=== PATIENT | female | born 1935 | race Caucasian/White ===

== ENCOUNTER 2016-07-13 08:52 | Inpatient (IN) | payer MEDICARE, OTHER ==
[~2016-07-13] VITALS: Ht 162.6 cm; Wt 48.8 kg
[~2016-07-13 08:52] MED LIST: AFED30TA PO; ALBU0.086 INH; ALBU6.7H INH; CHOL4 PO; COUM5TAB PO; DONE10TA14 PO; GEMF600T PO; HYOS0.1251 SL; LASI20TA PO; METO50TA PO; OMEP20TA PO; ZOLP10TA3 PO
[2016-07-13 08:57] VITALS: BP 150/86; PULSE 79; RESP 21; TEMP 97.4; O2SAT 94
[2016-07-13] MEDS ORDERED: SODIUM CHLORIDE 0.9% FLUSH 5 ML FLUSH IVF PRN (09:00)
[2016-07-13] MEDS ORDERED: HYDROmorphone HCL PF 1 MG/ML VIAL IVS ONE (09:00)
[2016-07-13] MEDS ORDERED: ONDANSETRON HCL 4 MG/2 ML VIAL IVP ONE (09:00)
[2016-07-13 09:04] VITALS: O2SAT 94
--- NOTE | 2016-07-13 09:05 | PD ---
HPI Chief Complaint: fall, hip pain Time Seen by Provider: 08:56 Travel History International Travel<30 days: No Contact w/Intl Traveler<30days: No Traveled to known affect area: No History of Present Illness HPI 81-year-old female with history of COPD on home O2, multiple medical issues, presents to the ER today brought in by EMS because she tripped on her oxygen cord and fell, has pain in her left hip, was unable to get up for 2 hours, but was able to crawl to the phone. She denies any head injury, loss of consciousness, or any other injuries. She also complains of lower back pain. She denies any weakness, fevers, vomiting, or any other symptoms. He is currently a 10 out 10, worsens with movement. Modifying Factors: None Associated Signs & Symptoms: Trip and fall, left hip pain Risk Factors: Elderly PFSH Past Medical History COPD: Yes Dementia: Yes Diminished Hearing: No Hypertension: Yes Musculoskeletal: Yes Psychiatric: Yes Respiratory: Yes (PULMONARY EMBOLUS) : 5 Para: 5 Past Surgical History Hysterectomy: Yes Social History Alcohol Use: Yes (HARD LIQUOR AND WATER THREE TIMES A WEEK) Tobacco Use: Yes (3-4 CIGARETTS DAILY) Substance Use: No Allergies-Medications (Allergen,Severity, Reaction): Coded Allergies: No Known Allergies (Unverified , 07/13/16) YES, VERIFIED WITH PATIENT (UNABLE TO CHANGE "VERIFIED" ANSW TO YES) Reported Meds & Prescriptions Reported Meds & Active Scripts Active Reported Ambien 10 Mg Tab (Zolpidem Tartrate) 10 Mg Tab 10 Mg PO HSPRN Questran 4 Gm Pkt (Cholestyramine Resin) 4 Gm Soln 4 Gm PO BID 2 scoops BID Proventil Ud 0.083% (2.5 Mg/3 Ml) (Albuterol Sulfate) 2.5 Mg/3 Ml Inha 2.5 Mg INH Q6-8HPRN Proventil Hfa (Albuterol Sulfate) 6.7 Gm Aero 2 Puff INH Q6-8HPRN * SHAKE WELL BEFORE USE * Gemfibrozil 600 Mg Tab 600 Mg PO BID Hyoscyamine Sulfate 0.125 Mg/Ml Iglesia 0.125 Mg SL TIDPRN Donepezil Hcl (Donepezil Hydrochloride) 10 Mg Tab 10 Mg PO DAILY Afeditab Cr (Nifedipine) 30 Mg Tab 30 Mg PO DAILY Coumadin (Warfarin Sodium) 5 Mg Tab 6 Mg PO DAILY Lasix (Furosemide) 20 Mg Tab 20 Mg PO DAILY TAKE 1-2 TABLETS NEEDED. Omeprazole 20 Mg Tab 20 Mg PO DAILY Metoprolol Tartrate 50 Mg Tab 25 Mg PO DAILY Review of Systems Except as stated in HPI: all other systems reviewed are Neg Physical Exam Narrative GENERAL: Elderly white female patient who is well developed, awake, alert, oriented 3, in moderate distress. SKIN: Warm and dry. HEAD: Atraumatic. Normocephalic. EYES: Pupils equal and round. No scleral icterus. No injection or drainage. ENT: No nasal bleeding or discharge. Mucous membranes pink and moist. NECK: Trachea midline. No JVD. CARDIOVASCULAR: Regular rate and rhythm. No murmur appreciated. RESPIRATORY: Mild accessory muscle use. Decreased bilaterally to auscultation. Breath sounds equal bilaterally. GASTROINTESTINAL: Abdomen soft, non-tender, nondistended. Hepatic and splenic margins not palpable. Pelvis: Stable, tender palpation at the left hip with noticed shortening of the left leg. Decreased range of motion secondary to pain. BACK: No CVA tenderness. No rash. No point tenderness on palpation of the spine. Generalized tenderness in the lower back midline. MUSCULOSKELETAL: No obvious deformities. No clubbing. No cyanosis. No edema. NEUROLOGICAL: Awake and alert. No obvious cranial nerve deficits. Motor grossly within normal limits. Normal speech. PSYCHIATRIC: Appropriate mood and affect; insight and judgment normal. Data Data Last Documented VS Vital Signs Date Time Temp Pulse Resp B/P Pulse Ox O2 Delivery O2 Flow Rate FiO2 07/13/16 09:04 94 Nasal Cannula 3 07/13/16 08:57 97.4 79 21 150/86 Orders Electrocardiogram (07/13/16 08:56) Complete Blood Count With Diff (07/13/16 08:56) Comprehensive Metabolic Panel (07/13/16 08:56) Prothrombin Time / Inr (Pt) (07/13/16 08:56) Act Partial Throm Time (Ptt) (07/13/16 08:56) Urinalysis - C+S If Indicated (07/13/16 08:56) Chest, Single Ap (07/13/16 08:56) Hip, Uni(Ap&Lat) W Ap Pelvis (07/13/16 08:56) Iv Access Insert/Monitor (07/13/16 08:56) Urinary Catheter Insert/Apply (07/13/16 08:56) Oximetry (07/13/16 08:56) Ecg Monitoring (07/13/16 08:56) Ondansetron Inj (Zofran Inj) (07/13/16 09:00) Sodium Chloride 0.9% Flush (Ns Flush) (07/13/16 09:00) Hydromorphone Pf Inj (Dilaudid Pf Inj) (07/13/16 09:00) Diet Npo (07/13/16 Breakfast) Creatine Kinase (Cpk) (07/13/16 09:05) Spine, Lumbar - Ltd (Ap & Lat) (07/13/16 09:05) Admit Order (Ed Use Only) (07/13/16 10:53) Admit To Inpatient (07/13/16 ) Vital Signs (Adult) Q4H (07/13/16 10:53) Activity Bed Rest (07/13/16 10:53) Intake + Output MARTHA.QSHIFT (07/13/16 10:53) Diet Npo (07/13/16 Lunch) Sodium Chlor 0.9% 1000 Ml Inj (Ns 1000 M (07/13/16 12:00) Sodium Chloride 0.9% Flush (Ns Flush) (07/13/16 11:00) Sodium Chloride 0.9% Flush (Ns Flush) (07/13/16 21:00) Ondansetron Inj (Zofran Inj) (07/13/16 11:00) Magnesium Hydroxide Liq (Milk Of Magnesi (07/13/16 11:00) Sennosides (Senokot) (07/13/16 11:00) Complete Blood Count With Diff (07/14/16 06:00) Scd Bilateral/Knee High MARTHA.BID (07/13/16 10:53) Eugene Bilateral/Knee High MARTHA.QSHIFT (07/13/16 10:53) Naloxone Inj (Narcan Inj) (07/13/16 11:00) Inpatient Certification (07/13/16 ) Labs Laboratory Tests Test 07/13/16 09:40 White Blood Count 14.5 TH/MM3 Red Blood Count 3.88 MIL/MM3 Hemoglobin 12.1 GM/DL Hematocrit 37.9 % Mean Corpuscular Volume 97.8 FL Mean Corpuscular Hemoglobin 31.2 PG Mean Corpuscular Hemoglobin 31.9 % Concent Red Cell Distribution Width 12.7 % Platelet Count 215 TH/MM3 Mean Platelet Volume 8.1 FL Neutrophils (%) (Auto) 85.1 % Lymphocytes (%) (Auto) 3.7 % Monocytes (%) (Auto) 10.7 % Eosinophils (%) (Auto) 0.2 % Basophils (%) (Auto) 0.3 % Neutrophils # (Auto) 12.3 TH/MM3 Lymphocytes # (Auto) 0.5 TH/MM3 Monocytes # (Auto) 1.6 TH/MM3 Eosinophils # (Auto) 0.0 TH/MM3 Basophils # (Auto) 0.0 TH/MM3 CBC Comment DIFF FINAL Differential Comment Prothrombin Time 11.1 SEC Prothromb Time International 1.0 RATIO Ratio Activated Partial 23.0 SEC Thromboplast Time Urine Color YELLOW Urine Turbidity CLEAR Urine pH 6.5 Urine Specific [place] 1.020 Urine Protein NEG mg/dL Urine Glucose (UA) NEG mg/dL Urine Ketones TRACE mg/dL Urine Occult Blood NEG Urine Nitrite NEG Urine Bilirubin NEG Urine Urobilinogen LESS THAN 2.0 MG/DL Urine Leukocyte Esterase NEG Urine RBC 2 /hpf Urine WBC 1 /hpf Urine Mucus FEW /lpf Microscopic Urinalysis Comment CATH-CULT NOT IND Sodium Level 143 MEQ/L Potassium Level 3.8 MEQ/L Chloride Level 101 MEQ/L Carbon Dioxide Level 33.5 MEQ/L Anion Gap 9 MEQ/L Blood Urea Nitrogen 15 MG/DL Creatinine 0.56 MG/DL Estimat Glomerular Filtration 104 ML/MIN Rate Random Glucose 117 MG/DL Calcium Level 8.9 MG/DL Total Bilirubin 0.4 MG/DL Aspartate Amino Transf 22 U/L (AST/SGOT) Alanine Aminotransferase 19 U/L (ALT/SGPT) Alkaline Phosphatase 54 U/L Total Creatine Kinase 100 U/L Total Protein 6.3 GM/DL Albumin 3.7 GM/DL MDM Medical Decision Making Medical Screen Exam Complete: Yes Emergency Medical Condition: Yes Medical Record Reviewed: Yes Interpretation(s) Laboratory Tests Test 07/13/16 09:40 White Blood Count 14.5 TH/MM3 (4.0-11.0) Red Blood Count 3.88 MIL/MM3 (4.00-5.30) Mean Corpuscular Hemoglobin 31.9 % Concent (32.0-36.0) Neutrophils (%) (Auto) 85.1 % (16.0-70.0) Lymphocytes (%) (Auto) 3.7 % (9.0-44.0) Monocytes (%) (Auto) 10.7 % (0.0-8.0) Neutrophils # (Auto) 12.3 TH/MM3 (1.8-7.7) Lymphocytes # (Auto) 0.5 TH/MM3 (1.0-4.8) Monocytes # (Auto) 1.6 TH/MM3 (0-0.9) Activated Partial 23.0 SEC Thromboplast Time (24.3-30.1) Urine Ketones TRACE mg/dL (NEG) Urine Mucus FEW /lpf (OCC) Carbon Dioxide Level 33.5 MEQ/L (21.0-32.0) Random Glucose 117 MG/DL (74-106) Total Protein 6.3 GM/DL (6.4-8.2) Last 24 hours Impressions Lumbar Spine X-Ray 07/13/1605 Signed Impressions: Service Date/Time: June 09:25 - CONCLUSION: 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 Anthony Salvador MD Hip and Pelvis X-Ray 07/13/16 0856 Signed Impressions: Service Date/Time: June 09:28 - CONCLUSION: Mildly angulated intertrochanteric fracture left hip. Anthony Salvador MD Chest X-Ray 07/13/16 0856 Signed Impressions: Service Date/Time: June 09:21 - CONCLUSION: COPD No evidence of significant airspace disease or acute congestion. Intact osseous structures without evidence of displaced rib fracture. Anthony Salvador MD Differential Diagnosis Trip and fall, back pain, left hip paincontusions versus fractures versus dislocations Narrative Course X-ray shows a left intratrochanteric hip fracture. No other acute fractures were identified. At this point, my plan would be to consult orthopedics on the patient and medically admit the patient for further treatment. Case is discussed with Dr. Fitzgerald for admission. Case was discussed with Dr. Thornton's PA who would like the patient to be nothing by mouth after midnight for ORIF. Diagnosis Primary Impression: Closed left hip fracture Admitting Information Admitting Physician Requests: Admit Shirley Brown MD Jul 13, 2016 09:05
--- NOTE | 2016-07-13 09:39 | RADRPT ---
EXAM DATE/TIME: 07/13/2016 09:21 [facility] COMPARISON: CHEST SINGLE AP, July 27, 2012, 16:04. INDICATIONS : Evaluate chest for trauma, fell MEDICAL HISTORY : None. SURGICAL HISTORY : None. ENCOUNTER: Initial ACUITY: 1 day PAIN SCORE: 0/10 LOCATION: chest FINDINGS: The lungs are hyperaerated. There is no evidence of acute airspace disease, congestion or pleural eff usions. Heart remains within normal limits in size. There are no acute bony abnormalities. CONCLUSION: COPD No evidence of significant airspace disease or acute congestion. Intact osseous structures without evidence of displaced rib fracture. Anthony Salvador MD on July 13, 2016 at 9:33 Board Certified Radiologist. This report was verified electronically.
--- NOTE | 2016-07-13 09:40 | RADRPT ---
EXAM DATE/TIME: 07/13/2016 09:28 [facility] COMPARISON: No previous studies available for comparison. INDICATIONS : Left hip pain, fell MEDICAL HISTORY : None. SURGICAL HISTORY : None. ENCOUNTER: Initial ACUITY: 1 day PAIN SCORE: 10/10 LOCATION: Left Hip FINDINGS: Examination of the left hip was performed with AP Pelvis. A mildly angulated intertrochanteric fractu re is identified the left hip. Femoral head remains well-seated within the acetabulum. Proximal left femoral shaft is otherwise intact. Bony pelvis is intact Mild bilateral hip arthropathy is noted. CONCLUSION: Mildly angulated intertrochanteric fracture left hip. Anthony Salvador MD on July 13, 2016 at 9:37 Board Certified Radiologist. This report was verified electronically.
--- NOTE | 2016-07-13 09:41 | RADRPT ---
EXAM DATE/TIME: 07/13/2016 09:25 [facility] COMPARISON: No previous studies available for comparison. INDICATIONS : Back pain, fell MEDICAL HISTORY : None. SURGICAL HISTORY : None. ENCOUNTER: Initial ACUITY: 1 day PAIN SCORE: 2/10 LOCATION: Lumbar spine FINDINGS: AP and lateral views of the lumbar spine demonstrates advanced degenerative disc disease with asymmet nirmal disc space narrowing. A levoscoliotic deformity is identified. Acute body height is well-maintained. There is no evidence of acute compression deformity. There are no destructive bone lesions. CONCLUSION: 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 Anthony Slavador MD on July 13, 2016 at 9:39 Board Certified Radiologist. This report was verified electronically.
[2016-07-13 10:12] LABS: BLOOD, URINE NEG (NEG); GLUCOSE,URINE NEG (NEG); KETONE, URINE TRACE mg/dL (NEG); MUCUS URINE FEW /lpf (OCC); NITRITE,URINE NEG (NEG); PH, URINE 6.5 (5.0-8.5); URINE COLOR YELLOW (YELLW/STRAW)
[2016-07-13 10:13] LABS: COMMENT (UR) CATH-CULT NOT IND; CULTURE IF INDICATED CATH CULTURE NOT IND
[2016-07-13 10:15] LABS: AUTOMATED NEUTROPHIL # 12.3 TH/MM3 (1.8-7.7); BASOPHIL % 0.3 % (0.0-2.0); EOSINOPHIL % 0.2 % (0.0-4.0); HEMATOCRIT 37.9 % (35.0-46.0); HEMO FLAGS DIFF FINAL; LYMPH % 3.7 % (9.0-44.0); LYMPHOCYTE # 0.5 TH/MM3 (1.0-4.8); MEAN CELL VOLUME 97.8 FL (80.0-100.0); MEAN CORPUSCULAR HEMOGLOBIN 31.2 PG (27.0-34.0); MEAN CORPUSCULAR HGB CONC 31.9 % (32.0-36.0); MONO % 10.7 % (0.0-8.0); NEUT % 85.1 % (16.0-70.0); PLATELET COUNT 215 TH/MM3 (150-450); RED BLOOD COUNT 3.88 MIL/MM3 (4.00-5.30); RED CELL DISTRIBUTION WIDTH 12.7 % (11.6-17.2); WHITE BLOOD COUNT 14.5 TH/MM3 (4.0-11.0)
[2016-07-13 10:21] LABS: PROTHROMBIN TIME - PATIENT 11.1 SEC (9.8-11.6)
[2016-07-13 10:23] LABS: ALT (GPT) 19 U/L (10-53); ANION GAP 9 MEQ/L (5-15); AST (GOT) 22 U/L (15-37); BICARBONATE 33.5 MEQ/L (21.0-32.0); BLOOD UREA NITROGEN 15 MG/DL (7-18); CHLORIDE 101 MEQ/L (98-107); GLOMERULAR FILTRATION RATE 104 ML/MIN (>89); POTASSIUM 3.8 MEQ/L (3.5-5.1); SODIUM (NA) 143 MEQ/L (136-145)
[2016-07-13 10:26] LABS: ALKALINE PHOSPHATASE 54 U/L (45-117); TOTAL BILIRUBIN ADULT 0.4 MG/DL (0.2-1.0)
[2016-07-13] MEDS ORDERED: SENNOSIDES 8.6 MG TAB PO PRN (11:00)
[2016-07-13] MEDS ORDERED: MAGNESIUM HYDROXIDE SUSP 30 ML CUP PO PRN (11:00)
[2016-07-13] MEDS ORDERED: NALOXONE HCL 0.4 MG/ML AMP IV PRN (11:00)
[2016-07-13] MEDS ORDERED: ONDANSETRON HCL 4 MG/2 ML VIAL IVP PRN (11:00)
[2016-07-13] MEDS ORDERED: SODIUM CHLORIDE 0.9% FLUSH 5 ML FLUSH FLUSH PRN (11:00)
[2016-07-13 12:00] VITALS: BP 131/61; PULSE 78; RESP 17; O2SAT 100
[2016-07-13 13:00] VITALS: BP 130/57; PULSE 77; RESP 17; O2SAT 96
--- NOTE | 2016-07-13 13:44 | EKG ---
Date Performed: 07/13/2016 Time Performed: 09:56:09 PTAGE: 81 years EKG: Sinus rhythm WITH FIRST DEGREE AV BLOCK WITH OCCASIONAL SUPRAVENTRICULAR PREMATURE COMPLEXES POSSIBLE LEFT ATRIAL ENLARGEMENT ABNORMAL ECG PREVIOUS TRACING : 07/24/2012 18.31 DOCTOR: Brandan Kate Interpretating Date/Time 07/13/2016 13:42:44
[2016-07-13] MEDS ORDERED: DOCUSATE SODIUM 50 MG/SENNA 8.6 MG TAB PO PRN (13:45)
[2016-07-13] MEDS ORDERED: ACETAMINOPHEN/HYDROcodone 325 MG/10 MG TAB PO PRN (13:45)
[2016-07-13] MEDS ORDERED: ACETAMINOPHEN/HYDROcodone 325 MG/7.5 MG TAB PO PRN (13:45)
[2016-07-13] MEDS: HYDROmorphone HCL PF 1 MG/ML VIAL IV PUSH PRN ×2 (13:48→17:44)
[2016-07-13 16:00] VITALS: BP 140/69; PULSE 82; RESP 18; TEMP 96.1; O2SAT 94
--- NOTE | 2016-07-13 17:16 | HHI.HP ---
[facility] Ad[facility] Diagnosis trip and fall/left hip fracture Diagnoses: Chief Complaint: left hip pain Travel History International Travel<30 Days: No Contact w/Intl Traveler <30 Da: No Traveled to Known Affected Are: No History of Present Illness 81 yr old female w PMHX of PE, COPD oxygen dependent, hyperlipidemia, dementia, presented to the ED for left hip pain. She fell around 5this morning after tripping on her oxygen cord. She called her best friend who came to see her as soon as he could around 7am. Pt is a poor historian but family friend at bedside gives me the history. Pt denies any LOC or hitting her head. Currently her pain is a 10/10 and radiates to her back. Stabbing in nature and located in her left hip. She tells me that she has been using oxygen at home for a very long time. She rarely uses her inhalers but cannot tell me which ones she is on. When asked about her hx of PE and if she had any other blood disorders she admits having a PE but denies any blood d/o and tells me that she hasn't been on blood thinners in a while but then tells me that she has been taking her meds and cannot remember if she indeed is on blood thinners. Apparently her was on hospice and they took all of their meds including hers. However she had some in her dispenser and she has been taking them but cannot recall which meds she is supposed to be on. Pt's friend couldn't find the bottles himself therefore cannot tell me what she takes. She does go to [facility] in [facility] on . Her a few days ago. Pt wishes to be a DNR. She tells me that she SOB is stable, hasn't had a flare in a while. Hasn't required using an inhaler recently. She denies any cardiac hx and friend doesn' t know of any. Review of Systems 10 pt review of systems negative except those mentioned in the HPI Past Family Social History Past Medical History dementia, COPD, hyperlipidemia, ? renal failure and hepatitis per EMR, hx PE. Past Surgical History hysterectomy Reported Medications Reported Meds & Active Scripts Active Reported Lisinopril 10 Mg Tab 10 Mg PO DAILY Nifedical XL (Nifedipine) 60 Mg Tab 30 Mg PO DAILY Allergies: Coded Allergies: No Known Allergies (Unverified , 07/13/16) YES, VERIFIED WITH PATIENT (UNABLE TO CHANGE "VERIFIED" ANSW TO YES) Family History mother from [place] father had a stroke Social History has been smoking since age 21 but has decrease her number of cigs to 5 cigs a day and since has managed her COPD just w oxygen. She doesn't follow w business objects architect and was prescribed her oxygen by her PCP Dr. Rm. denies any illegal drugs rarely drinks Physical Exam Vital Signs Vital Signs Date Time Temp Pulse Resp B/P Pulse Ox O2 Delivery O2 Flow Rate FiO2 07/13/16 16:00 96.1 82 18 140/69 94 07/13/16 13:00 77 17 130/57 96 Nasal Cannula 3 07/13/16 12:00 78 17 131/61 100 Nasal Cannula 3 07/13/16 09:04 94 Nasal Cannula 3 07/13/16 09:04 94 3 07/13/16 08:57 97.4 79 21 150/86 94 Physical Exam GENERAL: This is a well-nourished, well-developed patient, in no apparent distress. SKIN: No rashes, ecchymoses or lesions. Cool and dry. HEAD: Atraumatic. Normocephalic. No temporal or scalp tenderness. EYES: Pupils equal round and reactive. Extraocular motions intact. No scleral icterus. No injection or drainage. ENT: Nose without bleeding, purulent drainage or septal hematoma. Throat without erythema, tonsillar hypertrophy or exudate. Uvula midline. Airway patent. NECK: Trachea midline. No JVD or lymphadenopathy. Supple, nontender, no meningeal signs. CARDIOVASCULAR: Regular rate and rhythm without murmurs, gallops, or rubs. RESPIRATORY: Clear to auscultation. Breath sounds equal bilaterally. No wheezes , rales, or rhonchi. GASTROINTESTINAL: Abdomen soft, non-tender, nondistended. No hepato-splenomegaly , or palpable masses. No guarding. MUSCULOSKELETAL: Extremities without clubbing, cyanosis, or edema. No joint tenderness, effusion, or edema noted. No calf tenderness. Negative Homans sign bilaterally. NEUROLOGICAL: Awake and alert. Cranial nerves II through XII intact. Motor and sensory grossly within normal limits. Five out of 5 muscle strength in all muscle groups. Normal speech. Laboratory Laboratory Tests Test 07/13/16 09:40 White Blood Count 14.5 Red Blood Count 3.88 Hemoglobin 12.1 Hematocrit 37.9 Mean Corpuscular Volume 97.8 Mean Corpuscular Hemoglobin 31.2 Mean Corpuscular Hemoglobin 31.9 Concent Red Cell Distribution Width 12.7 Platelet Count 215 Mean Platelet Volume 8.1 Neutrophils (%) (Auto) 85.1 Lymphocytes (%) (Auto) 3.7 Monocytes (%) (Auto) 10.7 Eosinophils (%) (Auto) 0.2 Basophils (%) (Auto) 0.3 Neutrophils # (Auto) 12.3 Lymphocytes # (Auto) 0.5 Monocytes # (Auto) 1.6 Eosinophils # (Auto) 0.0 Basophils # (Auto) 0.0 CBC Comment DIFF FINAL Differential Comment Prothrombin Time 11.1 Prothromb Time International 1.0 Ratio Activated Partial 23.0 Thromboplast Time Urine Color YELLOW Urine Turbidity CLEAR Urine pH 6.5 Urine Specific [place] 1.020 Urine Protein NEG Urine Glucose (UA) NEG Urine Ketones TRACE Urine Occult Blood NEG Urine Nitrite NEG Urine Bilirubin NEG Urine Urobilinogen LESS THAN 2.0 Urine Leukocyte Esterase NEG Urine RBC 2 Urine WBC 1 Urine Mucus FEW Microscopic Urinalysis Comment CATH-CULT NOT IND Sodium Level 143 Potassium Level 3.8 Chloride Level 101 Carbon Dioxide Level 33.5 Anion Gap 9 Blood Urea Nitrogen 15 Creatinine 0.56 Estimat Glomerular Filtration 104 Rate Random Glucose 117 Calcium Level 8.9 Total Bilirubin 0.4 Aspartate Amino Transf 22 (AST/SGOT) Alanine Aminotransferase 19 (ALT/SGPT) Alkaline Phosphatase 54 Total Creatine Kinase 100 Total Protein 6.3 Albumin 3.7 Result Diagram: 07/13/1693907/13/16939 Imaging Last Impressions Lumbar Spine X-Ray 07/13/16904 Signed Impressions: Service Date/Time: June 09:25 - CONCLUSION: 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 Anthony Salvador MD Hip and Pelvis X-Ray 07/13/16 0856 Signed Impressions: Service Date/Time: June 09:28 - CONCLUSION: Mildly angulated intertrochanteric fracture left hip. Anthony Salvador MD Chest X-Ray 07/13/16 0856 Signed Impressions: Service Date/Time: June 09:21 - CONCLUSION: COPD No evidence of significant airspace disease or acute congestion. Intact osseous structures without evidence of displaced rib fracture. Anthony Salvador MD Assessment and Plan Assessment and Plan left intertrochanteric hip fx: ER physician discussed the case w orthopedic sx who plans on taking pt to OR tomorrow morning. Pt unsure if she is on anticoagulation for previous hx of PE. She does get her meds from [facility] therefore RN will call and verify pt's meds and update JUN (worst case will need to call Dr. Rm's office in AM to verify). Pt is a poor historian. Pt is oxygen dependent and hasn't followed w pulm for her COPD. Currently she is stable however will get a pulmonology consult for clearance for surgery as pt hasn't been compliant with her medications. Pain control with Terrell po prn and dilaudid IV prn breakthrough pain, zofran IV prn. COPD: oxygen dependent. pulm consult. Duonebs prn. Dementia: stable per family friend Leukocytosis: most likely stress reaction, will however monitor.u/a neg. INR 1.0 FEN: NS@75ml/hr, monitor electrolytes, heart healthy then NPO after midnight. DVT proph: SCD/CHRISTAL Code Status DNR Discussed Condition With RN, patient and family friend. Miriam Fitzgerald MD Jul 13, 2016 17:16
[2016-07-13] MEDS: SODIUM CHLOR 0.9% 1000 ML INJ 1,000 ML IV SCH (17:45)
[2016-07-13] MEDS ORDERED: NIFE15TA PO (17:48)
[2016-07-13] MEDS ORDERED: LISI10TA3 PO (17:48)
[2016-07-13] MEDS ORDERED: RESP: ALBUTEROL 2.5 MG/IPRATROPIUM 0.5 MG NEB (PRN) NEB (18:15)
[2016-07-13 20:00] VITALS: BP 155/54; PULSE 100; RESP 16; TEMP 97.4; O2SAT 98
[2016-07-13] MEDS: SODIUM CHLORIDE 0.9% FLUSH 5 ML FLUSH FLUSH SCH (20:01)
--- NOTE | 2016-07-13 21:27 | MB ---
cc: LUIS FERNANDO CERRATO MD DATE OF CONSULTATION 07/13/[address] Fitzgerald. REASON FOR CONSULTATION Pulmonary management, preoperative clearance. HISTORY OF PRESENT ILLNESS Ms. Yang is a pleasant 81-year-old female with a history of COPD. She is oxygen dependent. The patient came to the hospital after fall because she tripped on the oxygen cord. She was not able to get up. She called one of her friends who brought her into the hospital. She was evaluated in the emergency room. She had a workup done. CBC showed WBC count 14.5, hemoglobin 12.9 hematocrit 37.9, MCV 97, platelet count 215. Sodium 143, potassium 3.8, chloride 101, CO2 33, BUN 15, creatinine 0.56. X-ray of the hip shows mildly angulated intertrochanteric left hip fracture. Chest x-ray shows COPD, no evidence of acute disease. PAST MEDICAL HISTORY 1. History of COPD, 2. Pulmonary embolism 3. Hysterectomy 4. Underlying dementia. MEDICATIONS Currently taking 1. Albuterol/Atrovent nebulizer treatment. 2. Dilaudid p.r.n. 3. Zofran p.r.n. ALLERGIES NO KNOWN DRUG ALLERGIES. SOCIAL HISTORY She has a long history of smoking, continues to smoke. The patient is a poor historian. She says she has five children and her is alive. REVIEW OF SYSTEMS She walks only short distance at home. Denies any seizure, stroke or epilepsy. Does have history of pulmonary embolism. PHYSICAL EXAMINATION GENERAL: A frail elderly female mild short of breath not in acute distress. VITAL SIGNS: Blood pressure 130/57, heart rate 77, respiratory rate 17, temperature 96 HEENT: Pupils are equal and reactive to light. Oral mucosa, nasal mucosa normal. NECK: Supple. JVP not raised. CHEST: Equal bilaterally. No rhonchi. CARDIOVASCULAR: S1, S2 normal. ABDOMEN: Soft, nondistended. Bowel sounds present. EXTREMITIES: No edema. CIGAR HEAD HOLER: The patient alert, awake, moves extremities. IMPRESSION 1. COPD. The patient is oxygen dependent. 2. Left hip fracture 3. History of pulmonary embolism, 4. Hypertension. PLAN 1. I will check her blood gas. Continue aerosol treatment. Supplement her oxygen. The patient and is being planned for hip surgery. She is stable from pulmonary standpoint for her surgery. Further treatment will depend on the course in the hospital. Thank you, Dr. Fitzgerald, for this consultation. MD TOD June/ /7:03 PM /8:55 PM JONG
[2016-07-13] MEDS ORDERED: OMEP20TA PO (22:43)
[2016-07-13] MEDS ORDERED: LOVA40TA PO (22:43)
[2016-07-13] MEDS ORDERED: ARIC10TA PO (22:43)
[2016-07-14] VITALS (7 sets, daily range): BP systolic 90–146; BP diastolic 40–58; PULSE 82–98; RESP 16–20; TEMP 96–98.7; O2SAT 92–100
[2016-07-14 00:32] LABS: BLOOD GAS BASE EXCESS 6.8 mmol/L (-2-2); BLOOD GAS CARBOXYHEMOGLOBIN 1.6 % (0-4); BLOOD GAS HCO3 33 mmol/L (22-26); BLOOD GAS METHEMOGLOBIN 0.5 % (0-2); BLOOD GAS O2 HGB SATURATION 88 % (90-100); BLOOD GAS OXYGEN CONTENT 13.4 Vol % (12.0-20.0); BLOOD GAS PCO2 66 mmHg (38-42); BLOOD GAS PO2 59 mmHG (61-120); BLOOD GAS TOTAL HGB 10.8 G/DL (12.0-16.0); TEMP CORR TO 98.6
[2016-07-14 00:35] LABS: CRITICAL VALUE YES; DRAW SITE rr; LITER FLOW 4 L/M; NUMBER OF ARTERIAL PUNCTURES 2; OXYGEN DEVICE nc
[2016-07-14 00:36] LABS: STAT NO
[2016-07-14] MEDS: HYDROmorphone HCL PF 1 MG/ML VIAL IV PUSH PRN ×2 (02:55→14:13)
[2016-07-14] MEDS: SODIUM CHLOR 0.9% 1000 ML INJ 1,000 ML IV SCH ×2 (02:57→14:24)
[2016-07-14 05:14] LABS: AUTOMATED NEUTROPHIL # 8.1 TH/MM3 (1.8-7.7); BASOPHIL % 0.4 % (0.0-2.0); EOSINOPHIL % 0.3 % (0.0-4.0); HEMATOCRIT 34.9 % (35.0-46.0); HEMO FLAGS DIFF FINAL; LYMPH % 8.1 % (9.0-44.0); LYMPHOCYTE # 0.8 TH/MM3 (1.0-4.8); MEAN CORPUSCULAR HEMOGLOBIN 31.4 PG (27.0-34.0); MEAN CORPUSCULAR HGB CONC 31.8 % (32.0-36.0); MONO % 9.3 % (0.0-8.0); NEUT % 81.9 % (16.0-70.0); PLATELET COUNT 181 TH/MM3 (150-450); RED BLOOD COUNT 3.53 MIL/MM3 (4.00-5.30); RED CELL DISTRIBUTION WIDTH 12.8 % (11.6-17.2); WHITE BLOOD COUNT 9.9 TH/MM3 (4.0-11.0)
[2016-07-14] MEDS ORDERED: VANCOMYCIN HCL 1000 MG VIAL ONE (06:53)
[2016-07-14] MEDS ORDERED: SODIUM CHLOR 0.9% 250 ML INJ 250 ML ONE (06:54)
[2016-07-14] MEDS ORDERED: GENTAMICIN SULFATE 80 MG/2 ML VIAL ONE (06:54)
[2016-07-14] MEDS ORDERED: BUPIVACAINE/EPINEPHRINE 0.25% PF 10 ML VIAL ONE (07:07)
[2016-07-14] MEDS ORDERED: ceFAZolin INJ 1,000 MG VIAL ONE (07:18)
[2016-07-14] MEDS ORDERED: PROPOFOL 200 MG/20 ML AMP IV ONE (07:59)
[2016-07-14] MEDS ORDERED: ONDANSETRON HCL 4 MG/2 ML VIAL IV PUSH ONE (07:59)
[2016-07-14] MEDS ORDERED: PHENYLEPH/NS 1000 MCG/10 ML SYR IV ONE (07:59)
[2016-07-14] MEDS ORDERED: ePHEDrine/NS 25 MG/5 ML SYR IV ONE (07:59)
[2016-07-14] MEDS ORDERED: ACETAMINOPHEN 1000 MG/100 ML VIAL IV ONE (08:04)
[2016-07-14] MEDS ORDERED: SUGAMMADEX SODIUM 200 MG/2 ML VIAL IV PUSH ONE ×2 (08:04)
--- NOTE | 2016-07-14 08:10 | PD.OP ---
cc: Benja Thornton MD Operative Report Date of Surgery: Jul 14, 2016 Preoperative Diagnosis: Displaced left hip intertrochanteric fracture Postoperative Diagnosis: Procedure: Left hip reduction and intramedullary nail fixation Anesthesia: Gen. Surgeon: Benja Thornton Patent Examiner(s): HANANE Clayton PA-C The surgical procedure was assisted by my physician assistant winemaker. My P.A. presence was necessary throughout this case for the manipulation and positioning of the surgical extremity. My P.A. was assisting me throughout the duration of this procedure. The skill set of a physician assistant winemaker was medically necessary to complete this procedure. During the surgical case the surgical dressing maker was working at the back table and the physician assistant winemaker was directly assisting me. Operation and Findings: Implants used: 10 mm 130 Synthes TFNA short troch nail Plan of activity: Weight-bear as tolerated Patient was seen and evaluated preoperatively. The patient has significant hip pain from intertrochanteric hip fracture. The risk and benefits of surgery were discussed in depth with the patient to include bleeding infection nonunion malunion and need for hip replacement painful hardware as well as medical competitions including but not stroke heart attack and . Informed consent was obtained. Operative site was marked. Patient was brought to the operating room and placed on fracture table. IV sedation was administered by anesthesiologist. Timeout procedure was performed. Hip and leg were prepped with alcohol followed by DuraPrep and draped in the usual sterile fashion. IV antibiotics were given prior to incision. Procedure began with reduction of fracture. Traction was applied. The leg was manipulated to achieve reduction. Excellent reduction was achieved. Fluoroscopy was used to confirm reduction. A three inch incision was made proximal to the trochanter. Subcutaneous tissue was dissected bluntly. Guidepin was placed at the tip of the trochanter and advanced into the femoral canal. Fluoroscopy confirmed appropriate guidepin placement. A opening reamer was placed over the guidepin. The Synthes TFNA nail was attached to the insertion handle. Nail was now placed through the tip of the trochanter into the femoral canal. Fluoroscopy confirmed appropriate nail placement. A second incision was made over the lateral thigh. Cannulas were placed through the insertion handle down to the femur. Guidepin was now placed through the femoral nail into the center of the femoral head. Fluoroscopy confirmed appropriate guidepin placement. Screw length was measured. Cannulated drill was placed over the guidepin. Appropriate length lag screw was now placed. Traction was released and compression was applied. The set screw was now tightened in dynamic mode. Using the insertion handle as a guide a distal interlocking screw was drilled and placed. Final fluoroscopy revealed well aligned fracture with well-placed hardware. Incision was closed with 3-0 Vicryl and elzbieta. Sterile dressings were applied. Patient was awakened and transferred to recovery room. Benja Thornton MD Jul 14, 2016 08:10
[2016-07-14] MEDS ORDERED: HYDR-3288 PO (08:14)
[2016-07-14] MEDS ORDERED: SODIUM CHLORIDE 0.9% FLUSH 5 ML FLUSH IVF PRN (08:15)
[2016-07-14] MEDS ORDERED: diphenhydrAMINE HCL 25 MG CAP PO PRN (08:15)
[2016-07-14] MEDS ORDERED: *morphine SULFATE 8 MG/ML PERIprocedure ONLY ONE (08:48)
[2016-07-14] MEDS: SODIUM CHLORIDE 0.9% FLUSH 5 ML FLUSH FLUSH SCH ×2 (09:00→20:03)
[2016-07-14] MEDS: SODIUM CHLORIDE 0.9% FLUSH 5 ML FLUSH IVF SCH ×2 (09:00→20:04)
--- NOTE | 2016-07-14 09:39 | MB ---
cc: LAYA VINES DATE OF CONSULTATION 07/14/2016 REASON FOR CONSULTATION Left hip intertrochanteric fracture. CONSULTING PHYSICIAN Dr. Miriam Fitzgerald HISTORY Ms. Yang is a 81-year-old female who has a history of COPD, a history of PE, and high cholesterol. She had a mechanical fall at home. She tripped over her oxygen cord. She called her friend who came over to see her. She was unable to stand or ambulate. She presented to the emergency room where x-rays revealed a left hip intertrochanteric fracture. She is currently awake and alert on the orthopedic floor. Her only complaint is her left hip. Pain is worse with movement and is improved with rest. She has chronic shortness of breath secondary to COPD. She denies any dizziness, syncope or loss of consciousness. PAST MEDICAL HISTORY ILLNESSES 1. COPD 2. High cholesterol 3. Hepatitis SURGERIES Hysterectomy MEDICATIONS 1. Lisinopril 2. Nifedipine ALLERGIES NO KNOWN DRUG ALLERGIES. FAMILY HISTORY Positive for myocardial infarction in her mother and a stroke in her father. SOCIAL HISTORY The patient is a long-term smoker. She denies drug use. She rarely drinks alcohol. REVIEW OF SYSTEMS The patient denies headache, visual changes, neck pain, chest pain, abdominal pain, nausea or recent weight loss, numbness or tingling of extremities. She complains of chronic shortness of breath. She has left hip pain since her fall. PHYSICAL EXAMINATION The patient is a thin 81-year female who is awake and alert. She is in no acute distress. VITAL SIGNS: Temperature 98.6, pulse 93, respirations 17, blood pressure 130/52, O2 sat 97% on three liters nasal cannula. HEAD: The patient is normocephalic. EYES: Pupils are equal. NECK: Soft, nontender. Trachea is midline. ABDOMEN: Soft, nontender, nondistended. EXTREMITIES: Examination of bilateral upper extremities reveals no pain with shoulder, elbow or wrist motion. Skin is intact. Radial pulses are palpable. Senior Enterprise Architect strength is +5. Sensation is intact in radial, ulnar, median nerve distributions. Examination of right leg reveals no pain with hip, knee or ankle motion. Skin is intact. Dorsalis pedis pulses palpable. Sensation is intact to right foot. Examination of left leg reveals pain with any hip motion. She has no tenderness around the tibia or ankle. Skin is intact. Dorsalis pedis pulses palpable. Sensation is intact in both feet. X-RAYS X-rays of left hip were reviewed. X-rays revealed a displaced left hip intertrochanteric fracture. IMPRESSION 1. COPD 2. Osteoporosis 3. Hypertension 4. Left hip intertrochanteric fracture PLAN Treatment options were discussed with the patient. At this point, I would recommend left hip open reduction, intramedullary nail fixation. The risks of surgery include bleeding, infection, injury to arteries, nerves and blood vessels, nonunion, malunion, painful hardware, as well as medical complications including blood clot, stroke, heart attack and . All questions were answered. I will plan on surgery today. A mid-level provider in my office (nurse practitioner or physician patient support assistant) may see this patient on follow-up visits and continue to implement the objectives of this plan including: Starting or adjusting medications, injections , cast application, orthotics, brace application, physical therapy, radiological studies (including x-ray, MRI, CT, ultrasound, bone scan), vascular studies, neurologic studies, specialist consultation, and proceeding with surgical management, as appropriate. MD AMOL Mancilla/PETRA /8:14 AM /9:29 AM JONG
[2016-07-14] MEDS ORDERED: ERGOCALCIFEROL (VIT D2) 50,000 UNIT CAP PO ONE (10:00)
[2016-07-14] MEDS: DONEPEZIL HCL 5 MG TAB PO SCH (12:31)
[2016-07-14] MEDS: PANTOPRAZOLE SOD 20 MG DELAYED RELEASE TAB PO SCH (12:32)
[2016-07-14] MEDS: POLYETHYLENE GLYCOL 17 GM PKG PO SCH (12:32)
[2016-07-14] MEDS: LISINOPRIL 10 MG TAB PO SCH (12:32)
[2016-07-14] MEDS: NIFEdipine 30 MG SUSTAINED RELEASE TAB PO SCH (12:32)
[2016-07-14] MEDS: CHOLECALCIFEROL (VIT D3) 5000 UNIT CAP PO SCH (12:33)
[2016-07-14] MEDS: CALCIUM/VITAMIN D 250 MG/125 U TAB PO SCH ×3 (12:33→18:00)
[2016-07-14] MEDS: ACETAMINOPHEN/HYDROcodone 325 MG/7.5 MG TAB PO PRN ×2 (12:37→20:03)
--- NOTE | 2016-07-14 15:05 | RADRPT ---
EXAM DATE/TIME: 07/14/2016 08:03 [facility] COMPARISON: No previous studies available for comparison. INDICATIONS : ORIF left hip troch nail. MEDICAL HISTORY : None. SURGICAL HISTORY : None. ENCOUNTER: Subsequent ACUITY: 2 days PAIN SCORE: Non-responsive. LOCATION: Left hip. FINDINGS: A two view examination of the left hip was performed. There is a short intramedullary ruel seen at the proximal femur secured by a screw distally. There is compression screw seen through the femoral neck and head successfully reducing the intertrochanteric femoral neck fracture. CONCLUSION: Successful ORIF. Cem Avalos MD on July 14, 2016 at 15:02 Board Certified Radiologist. This report was verified electronically.
[2016-07-14] MEDS: MORPHINE SULFATE 4 MG/ML INJ IV PUSH PRN (16:12)
--- NOTE | 2016-07-14 17:27 | HHI.PR ---
Subjective Remarks Pt states she has pain. Wants to speak with nurse. Denies any CP/SOB/N/V Discussed w RN, pt a bit confused post surgery Objective Vitals Vital Signs Date Time Temp Pulse Resp B/P Pulse Ox O2 Delivery O2 Flow Rate FiO2 07/14/16 12:00 97.7 96 17 90/50 99 07/14/16 09:27 98 Nasal Cannula 2.00 07/14/16 09:20 96.0 98 18 100/50 96 07/14/16 09:00 97.4 95 16 139/57 99 Nasal Cannula 2 07/14/16 08:45 97 16 164/63 100 Nasal Cannula 2 07/14/16 08:30 109 16 147/55 99 Nasal Cannula 2 07/14/16 08:23 97.6 103 16 148/64 99 Nasal Cannula 3 07/14/16 04:00 98.6 93 17 130/52 97 07/14/16 00:00 98.7 85 16 146/58 100 07/13/16 20:00 97.4 100 16 155/54 98 I/O 07/13/16 07/13/16 07/13/16 07/14/16 07/14/16 07/14/16 07:00 15:00 23:00 07:00 15:00 23:00 Intake Total 582 ml 820 ml 1100 ml Output Total 250 ml 250 ml 425 ml Balance 332 ml 570 ml 675 ml Intake Oral 240 ml 0 ml 0 ml IV Total 342 ml 820 ml 100 ml Other 1000 ml Output Urine Total 250 ml 250 ml 325 ml Estimated Blood Loss 100 ml # Bowel Movements 1 0 Result Diagram: 07/14/16 0443 07/13/16 0940 Imaging Last Impressions Hip X-Ray 07/14/16 0000 Signed Impressions: Service Date/Time: Thursday, July 14, 2016 08:03 - CONCLUSION: Successful ORIF. Cem Avalos MD Lumbar Spine X-Ray 07/13/16 0905 Signed Impressions: Service Date/Time: June 09:25 - CONCLUSION: 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 Anthony Salvador MD Hip and Pelvis X-Ray 07/13/16 0856 Signed Impressions: Service Date/Time: June 09:28 - CONCLUSION: Mildly angulated intertrochanteric fracture left hip. Anthony Salvador MD Chest X-Ray 07/13/16 0856 Signed Impressions: Service Date/Time: June 09:21 - CONCLUSION: COPD No evidence of significant airspace disease or acute congestion. Intact osseous structures without evidence of displaced rib fracture. Anthony Salvador MD Objective Remarks GENERAL: This is a well-nourished, well-developed patient, in no apparent distress. CARDIOVASCULAR: Regular rate and rhythm without murmurs RESPIRATORY: Clear to auscultation. Breath sounds equal bilaterally. No wheezes GASTROINTESTINAL: Abdomen soft, non-tender, nondistended. No guarding. MUSCULOSKELETAL: Extremities without edema. No joint tenderness, effusion, or edema noted. No calf tenderness. Negative Homans sign bilaterally. NEUROLOGICAL: Awake and alert, but pleasantly confused. Cranial nerves II through XII intact. complaining of pain A/P Assessment and Plan Left intertrochanteric hip fx: s/p L hip reduction and intramedullary nail fixation POD #0. Pain control, Anticoagulation, rehab and abx per surgical team. bowel regimen in place COPD: oxygen dependent. pulm following, appreciate assistance. Jeffrey prn. Dementia: stable per family friend Leukocytosis: most likely stress reaction, resolved. DVT proph: lovenox per ortho Discharge Planning d/c when cleared by [facility]. Miriam Fitzgerald MD Jul 14, 2016 17:27
[2016-07-14] MEDS: PRAVASTATIN SOD 40 MG TAB PO SCH (20:03)
--- NOTE | 2016-07-14 20:43 | HHI.PR ---
Subjective Remarks 81 YOWF with COPD, h/o PE, left hip fracture Underwent surgery Doing well Confused Objective Vital Signs Vital Signs Date Time Temp Pulse Resp B/P Pulse Ox O2 Delivery O2 Flow Rate FiO2 07/14/16 16:00 97.4 89 17 100/53 93 07/14/16 12:00 97.7 96 17 90/50 99 07/14/16 09:27 98 Nasal Cannula 2.00 07/14/16 09:20 96.0 98 18 100/50 96 07/14/16 09:00 97.4 95 16 139/57 99 Nasal Cannula 2 07/14/16 08:45 97 16 164/63 100 Nasal Cannula 2 07/14/16 08:30 109 16 147/55 99 Nasal Cannula 2 07/14/16 08:23 97.6 103 16 148/64 99 Nasal Cannula 3 07/14/16 04:00 98.6 93 17 130/52 97 07/14/16 00:00 98.7 85 16 146/58 100 I/O 07/13/16 07/13/16 07/13/16 07/14/16 07/14/16 07/14/16 07:00 15:00 23:00 07:00 15:00 23:00 Intake Total 582 ml 820 ml 1100 ml 240 ml Output Total 250 ml 250 ml 425 ml 350 ml Balance 332 ml 570 ml 675 ml -110 ml Intake Oral 240 ml 0 ml 0 ml 240 ml IV Total 342 ml 820 ml 100 ml Other 1000 ml Output Urine Total 250 ml 250 ml 325 ml 350 ml Estimated Blood Loss 100 ml # Bowel Movements 1 0 0 Result Diagram: 07/14/16 0443 07/13/16 0940 Objective Remarks GENERAL: Frail elderly female, no distress SKIN: Warm and dry. HEAD: Normocephalic. EYES: No scleral icterus. No injection or drainage. NECK: Supple, trachea midline. No JVD or lymphadenopathy. CARDIOVASCULAR: Regular rate and rhythm without murmurs, gallops, or rubs. RESPIRATORY: Breath sounds equal bilaterally. No accessory muscle use. GASTROINTESTINAL: Abdomen soft, non-tender, nondistended. MUSCULOSKELETAL: No cyanosis, or edema. BACK: Nontender without obvious deformity. No CVA tenderness. A/P Assessment and Plan COPD S/P left hip surgery H/O PE resp acidosis PLAN: Aerosol nebs Supplement 02 to keep sat 88-92 % SQ Lovenox CPAP if sob or lethargic Shawn Landers MD Jul 14, 2016 20:43
[2016-07-15] VITALS (9 sets, daily range): BP systolic 96–139; BP diastolic 41–58; PULSE 74–90; RESP 17–21; TEMP 96.7–97.7; O2SAT 92–99
[2016-07-15] MEDS: SODIUM CHLOR 0.9% 1000 ML INJ 1,000 ML IV SCH ×2 (04:00→16:45)
[2016-07-15] MEDS: ACETAMINOPHEN/HYDROcodone 325 MG/7.5 MG TAB PO PRN ×4 (05:38→22:15)
[2016-07-15 07:31] LABS: HEMATOCRIT 28.5 % (35.0-46.0); REVIEW FLAG FINAL
[2016-07-15] MEDS: MORPHINE SULFATE 4 MG/ML INJ IV PUSH PRN (07:32)
--- NOTE | 2016-07-15 08:20 | PD.ORT.PN ---
Subjective Subjective Remarks hx of dementia complaining of pain Objective Vitals Vital Signs Date Time Temp Pulse Resp B/P Pulse Ox O2 Delivery O2 Flow Rate FiO2 07/15/16 07:56 Nasal Cannula 2.00 07/15/16 04:00 96.8 84 19 139/55 98 07/15/16 00:45 99 Nasal Cannula 2.00 07/15/16 00:40 97.0 76 21 99/42 99 07/14/16 20:00 96.0 82 20 96/40 92 07/14/16 16:00 97.4 89 17 100/53 93 07/14/16 12:00 97.7 96 17 90/50 99 07/14/16 09:27 98 Nasal Cannula 2.00 07/14/16 09:20 96.0 98 18 100/50 96 07/14/16 09:00 97.4 95 16 139/57 99 Nasal Cannula 2 07/14/16 08:45 97 16 164/63 100 Nasal Cannula 2 07/14/16 08:30 109 16 147/55 99 Nasal Cannula 2 07/14/16 08:23 97.6 103 16 148/64 99 Nasal Cannula 3 I/O 07/14/16 07/14/16 07/14/16 07/15/16 07/15/16 07/15/16 07:00 15:00 23:00 07:00 15:00 23:00 Intake Total 820 ml 1100 ml 360 ml 121 ml Output Total 250 ml 425 ml 650 ml 150 ml Balance 570 ml 675 ml -290 ml -29 ml Intake Oral 0 ml 0 ml 360 ml 121 ml IV Total 820 ml 100 ml Other 1000 ml Output Urine Total 250 ml 325 ml 650 ml 150 ml Estimated Blood Loss 100 ml # Bowel Movements 0 0 0 Result Diagram: 07/15/16 0615 07/13/16 0940 Objective Remarks seen by Dr. Lazaro Wasserman left hip dressings dry and intact +NVI sensation intact no calf tenderness Assessment & Plan Assessment and Plan POD # 1 s/p L hip intertroch fx WBAT-PT lovenox for dvt prop patient having swallowing difficulty, nurse was going to have medical order swallow eval discharge planning Honey Tang Jul 15, 2016 08:20
[2016-07-15] MEDS: LISINOPRIL 10 MG TAB PO SCH (09:00)
[2016-07-15] MEDS: SODIUM CHLORIDE 0.9% FLUSH 5 ML FLUSH IVF SCH ×2 (09:00→21:00)
--- NOTE | 2016-07-15 10:12 | HHI.PR ---
Subjective Remarks Pt sitting on recliner eating breakfast pleasantly confused at times however currently doesn't complain of pain. denies any n/v/sob. RN would like a swallow eval as pt has no dentures Objective Vitals Vital Signs Date Time Temp Pulse Resp B/P Pulse Ox O2 Delivery O2 Flow Rate FiO2 07/15/16 07:56 Nasal Cannula 2.00 07/15/16 07:08 97.6 76 18 105/58 94 07/15/16 04:00 96.8 84 19 139/55 98 07/15/16 00:45 99 Nasal Cannula 2.00 07/15/16 00:40 97.0 76 21 99/42 99 07/14/16 20:00 96.0 82 20 96/40 92 07/14/16 16:00 97.4 89 17 100/53 93 07/14/16 12:00 97.7 96 17 90/50 99 I/O 07/14/16 07/14/16 07/14/16 07/15/16 07/15/16 07/15/16 07:00 15:00 23:00 07:00 15:00 23:00 Intake Total 820 ml 1100 ml 360 ml 121 ml Output Total 250 ml 425 ml 650 ml 150 ml Balance 570 ml 675 ml -290 ml -29 ml Intake Oral 0 ml 0 ml 360 ml 121 ml IV Total 820 ml 100 ml Other 1000 ml Output Urine Total 250 ml 325 ml 650 ml 150 ml Estimated Blood Loss 100 ml # Bowel Movements 0 0 0 Result Diagram: 07/15/16 0615 07/13/16 0940 Imaging Last Impressions Hip X-Ray 07/14/16 0000 Signed Impressions: Service Date/Time: Thursday, July 14, 2016 08:03 - CONCLUSION: Successful ORIF. Cem Avalos MD Lumbar Spine X-Ray 07/13/16 0905 Signed Impressions: Service Date/Time: June 09:25 - CONCLUSION: 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 Anthony Salvador MD Hip and Pelvis X-Ray 07/13/16 0856 Signed Impressions: Service Date/Time: June 09:28 - CONCLUSION: Mildly angulated intertrochanteric fracture left hip. Anthony Slavador MD Chest X-Ray 07/13/16 0856 Signed Impressions: Service Date/Time: June 09:21 - CONCLUSION: COPD No evidence of significant airspace disease or acute congestion. Intact osseous structures without evidence of displaced rib fracture. Anthony Salvador MD Objective Remarks GENERAL: This is a well-nourished, well-developed patient, in no apparent distress. CARDIOVASCULAR: Regular rate and rhythm without murmurs RESPIRATORY: Clear to auscultation. Breath sounds equal bilaterally. No wheezes GASTROINTESTINAL: Abdomen soft, non-tender, nondistended. No guarding. MUSCULOSKELETAL: Extremities without edema. NEUROLOGICAL: Awake and alert, but pleasantly confused. Cranial nerves II through XII intact. A/P Assessment and Plan Left intertrochanteric hip fx: s/p L hip reduction and intramedullary nail fixation POD #1. continue Pain control, Anticoagulation, rehab and abx per surgical team. bowel regimen in place COPD: oxygen dependent. pulm following, appreciate assistance. Jeffrey prn. Dementia: stable per family friend Leukocytosis: most likely stress reaction, resolved. DVT proph: lovenox per ortho Discharge Planning d/c when cleared by [facility]. Miriam Fitzgerald MD Jul 15, 2016 10:12
[2016-07-15] MEDS: DONEPEZIL HCL 5 MG TAB PO SCH (10:24)
[2016-07-15] MEDS: POLYETHYLENE GLYCOL 17 GM PKG PO SCH (10:24)
[2016-07-15] MEDS: NIFEdipine 30 MG SUSTAINED RELEASE TAB PO SCH (10:24)
[2016-07-15] MEDS: SODIUM CHLORIDE 0.9% FLUSH 5 ML FLUSH FLUSH SCH ×2 (10:24→21:00)
[2016-07-15] MEDS: CALCIUM/VITAMIN D 250 MG/125 U TAB PO SCH ×3 (10:24→16:46)
[2016-07-15] MEDS: CHOLECALCIFEROL (VIT D3) 5000 UNIT CAP PO SCH (10:24)
[2016-07-15] MEDS: PANTOPRAZOLE SOD 20 MG DELAYED RELEASE TAB PO SCH (10:24)
[2016-07-15] MEDS: ENOXAPARIN SODIUM 30 MG/0.3 ML SYRINGE SQ SCH (10:25)
--- NOTE | 2016-07-15 16:13 | HHI.PR ---
Subjective Remarks 81 YOWF with COPD, h/o PE, left hip fracture Underwent surgery Doing well Alert, awake, eating food Her best friend at Objective Vital Signs Vital Signs Date Time Temp Pulse Resp B/P Pulse Ox O2 Delivery O2 Flow Rate FiO2 07/15/16 14:54 79 97/42 07/15/16 11:25 97.3 74 18 96/41 93 07/15/16 09:05 Nasal Cannula 2.00 07/15/16 07:56 Nasal Cannula 2.00 07/15/16 07:08 97.6 76 18 105/58 94 07/15/16 04:00 96.8 84 19 139/55 98 07/15/16 00:45 99 Nasal Cannula 2.00 07/15/16 00:40 97.0 76 21 99/42 99 07/14/16 20:00 96.0 82 20 96/40 92 I/O 07/14/16 07/14/16 07/14/16 07/15/16 07/15/16 07/15/16 07:00 15:00 23:00 07:00 15:00 23:00 Intake Total 820 ml 1100 ml 360 ml 121 ml 334 ml Output Total 250 ml 425 ml 650 ml 150 ml Balance 570 ml 675 ml -290 ml -29 ml 334 ml Intake Oral 0 ml 0 ml 360 ml 121 ml IV Total 820 ml 100 ml 334 ml Other 1000 ml Output Urine Total 250 ml 325 ml 650 ml 150 ml Estimated Blood Loss 100 ml # Bowel Movements 0 0 0 Result Diagram: 07/15/16 0615 07/13/16 0940 Objective Remarks GENERAL: Frail elderly female, no distress SKIN: Warm and dry. HEAD: Normocephalic. EYES: No scleral icterus. No injection or drainage. NECK: Supple, trachea midline. No JVD or lymphadenopathy. CARDIOVASCULAR: Regular rate and rhythm without murmurs, gallops, or rubs. RESPIRATORY: Breath sounds equal bilaterally. No accessory muscle use. GASTROINTESTINAL: Abdomen soft, non-tender, nondistended. MUSCULOSKELETAL: No cyanosis, or edema. BACK: Nontender without obvious deformity. No CVA tenderness. A/P Assessment and Plan COPD S/P left hip surgery H/O PE resp acidosis PLAN: Aerosol nebs Supplement 02 to keep sat 88-92 % SQ Lovenox CPAP if sob or lethargic Shawn Landers MD Jul 15, 2016 16:13
[2016-07-15] MEDS ORDERED: SODIUM CHLORID 0.9% 500 ML INJ 500 ML IV SCH (19:15)
[2016-07-15] MEDS: PRAVASTATIN SOD 40 MG TAB PO SCH (22:14)
[2016-07-16] VITALS (7 sets, daily range): BP systolic 117–142; BP diastolic 46–66; PULSE 84–98; RESP 19–20; TEMP 96.6–98; O2SAT 92–97
[2016-07-16] MEDS: SODIUM CHLOR 0.9% 1000 ML INJ 1,000 ML IV SCH ×2 (06:40→09:29)
--- NOTE | 2016-07-16 08:41 | PD.ORT.PN ---
Subjective Subjective Remarks hx of dementia complaining of pain but was resting/sleeping comfortably upon entering room Objective Vitals Vital Signs Date Time Temp Pulse Resp B/P Pulse Ox O2 Delivery O2 Flow Rate FiO2 07/16/16 07:45 Nasal Cannula 2.00 07/16/16 00:00 98.0 84 19 123/46 94 07/15/16 20:15 96.7 90 20 117/49 95 07/15/16 17:57 92 Nasal Cannula 2.00 07/15/16 16:00 97.7 81 17 103/43 92 07/15/16 14:54 79 97/42 07/15/16 11:25 97.3 74 18 96/41 93 07/15/16 09:05 Nasal Cannula 2.00 I/O 07/15/16 07/15/16 07/15/16 07/16/16 07/16/16 07/16/16 07:00 15:00 23:00 07:00 15:00 23:00 Intake Total 121 ml 814 ml 950 ml 730 ml Output Total 150 ml 150 ml 200 ml 600 ml Balance -29 ml 664 ml 750 ml 130 ml Intake Oral 121 ml 480 ml 120 ml 50 ml IV Total 334 ml 830 ml 680 ml Output Urine Total 150 ml 150 ml 200 ml 600 ml # Voids 0 # Bowel Movements 0 0 0 0 Result Diagram: 07/15/16 0615 07/13/16 0940 Objective Remarks seen by Dr. Lazaro Wasserman left hip dressings dry and intact +NVI sensation intact no calf tenderness Assessment & Plan Assessment and Plan POD # 3 s/p L hip intertroch fx WBAT-PT lovenox for dvt prop patient having swallowing difficulty, was evaluated yesterday and recommended only liquids and mechanical soft diet discharge planning, stable from orthopedic point to be discharged to rehab Honey Tang Jul 16, 2016 08:41
[2016-07-16] MEDS: SODIUM CHLORIDE 0.9% FLUSH 5 ML FLUSH FLUSH SCH ×2 (09:00→21:00)
[2016-07-16] MEDS: LISINOPRIL 10 MG TAB PO SCH (09:00)
[2016-07-16] MEDS: SODIUM CHLORIDE 0.9% FLUSH 5 ML FLUSH IVF SCH ×2 (09:00→21:00)
[2016-07-16] MEDS: PANTOPRAZOLE SOD 20 MG DELAYED RELEASE TAB PO SCH (09:28)
[2016-07-16] MEDS: DONEPEZIL HCL 5 MG TAB PO SCH (09:28)
[2016-07-16] MEDS: CHOLECALCIFEROL (VIT D3) 5000 UNIT CAP PO SCH (09:28)
[2016-07-16] MEDS: POLYETHYLENE GLYCOL 17 GM PKG PO SCH (09:28)
[2016-07-16] MEDS: NIFEdipine 30 MG SUSTAINED RELEASE TAB PO SCH (09:28)
[2016-07-16] MEDS: CALCIUM/VITAMIN D 250 MG/125 U TAB PO SCH ×3 (09:28→16:16)
[2016-07-16] MEDS: ENOXAPARIN SODIUM 30 MG/0.3 ML SYRINGE SQ SCH (09:29)
[2016-07-16] MEDS: ACETAMINOPHEN/HYDROcodone 325 MG/7.5 MG TAB PO PRN ×4 (09:31→21:07)
--- NOTE | 2016-07-16 10:51 | HHI.PR ---
Subjective Remarks Tells me that she has pain that is why she hasn't gotten out of bed to sit on chair for her breakfast. denies any CP/SOB/N/V Objective Vitals Vital Signs Date Time Temp Pulse Resp B/P Pulse Ox O2 Delivery O2 Flow Rate FiO2 07/16/16 07:45 Nasal Cannula 2.00 07/16/16 07:15 97.2 89 19 142/66 96 07/16/16 00:00 98.0 84 19 123/46 94 07/15/16 20:15 96.7 90 20 117/49 95 07/15/16 17:57 92 Nasal Cannula 2.00 07/15/16 16:00 97.7 81 17 103/43 92 07/15/16 14:54 79 97/42 07/15/16 11:25 97.3 74 18 96/41 93 I/O 07/15/16 07/15/16 07/15/16 07/16/16 07/16/16 07/16/16 07:00 15:00 23:00 07:00 15:00 23:00 Intake Total 121 ml 814 ml 950 ml 730 ml Output Total 150 ml 150 ml 200 ml 600 ml Balance -29 ml 664 ml 750 ml 130 ml Intake Oral 121 ml 480 ml 120 ml 50 ml IV Total 334 ml 830 ml 680 ml Output Urine Total 150 ml 150 ml 200 ml 600 ml # Voids 0 # Bowel Movements 0 0 0 0 Result Diagram: 07/15/16 0615 07/13/16 0940 Imaging Last Impressions Hip X-Ray 07/14/16 0000 Signed Impressions: Service Date/Time: Thursday, July 14, 2016 08:03 - CONCLUSION: Successful ORIF. Cem Avalos MD Lumbar Spine X-Ray 07/13/16 0905 Signed Impressions: Service Date/Time: June 09:25 - CONCLUSION: 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 Anthony Salvador MD Hip and Pelvis X-Ray 07/13/16 0856 Signed Impressions: Service Date/Time: June 09:28 - CONCLUSION: Mildly angulated intertrochanteric fracture left hip. Anthony Salvador MD Chest X-Ray 07/13/1656 Signed Impressions: Service Date/Time: June 09:21 - CONCLUSION: COPD No evidence of significant airspace disease or acute congestion. Intact osseous structures without evidence of displaced rib fracture. Anthony Salvador MD Objective Remarks GENERAL: This is a well-nourished, well-developed patient, in no apparent distress. CARDIOVASCULAR: Regular rate and rhythm without murmurs RESPIRATORY: Clear to auscultation. Breath sounds equal bilaterally. No wheezes GASTROINTESTINAL: Abdomen soft, non-tender, nondistended. No guarding. MUSCULOSKELETAL: Extremities without edema. NEUROLOGICAL: Awake and alert, but pleasantly confused. Cranial nerves II through XII intact. able to wiggle her toes, sensation intact A/P Assessment and Plan Left intertrochanteric hip fx: s/p L hip reduction and intramedullary nail fixation POD #2. continue Pain control, Anticoagulation, rehab and abx per surgical team. bowel regimen in place COPD: oxygen dependent. pulm following, appreciate assistance. Jeffrey prn. Dementia: stable per family friend Leukocytosis: most likely stress reaction, resolved. DVT proph: lovenox per ortho Discharge Planning pt has been cleared to go to rehab however pt tells me that her pain is not yet well controlled. Continue pain control, encouraged pt to participate w PT today. Anticipate d/c in AM to rehab Miriam Fitzgerald MD Jul 16, 2016 10:51
--- NOTE | 2016-07-16 17:20 | HHI.PR ---
Subjective Remarks 81 YOWF with COPD, h/o PE, left hip fracture Underwent surgery Doing well Alert, awake, No new complaint Objective Vital Signs Vital Signs Date Time Temp Pulse Resp B/P Pulse Ox O2 Delivery O2 Flow Rate FiO2 07/16/16 11:16 96.9 86 19 140/53 97 07/16/16 10:20 97 Nasal Cannula 2.00 07/16/16 07:45 Nasal Cannula 2.00 07/16/16 07:15 97.2 89 19 142/66 96 07/16/16 00:00 98.0 84 19 123/46 94 07/15/16 20:15 96.7 90 20 117/49 95 07/15/16 17:57 92 Nasal Cannula 2.00 I/O 07/15/16 07/15/16 07/15/16 07/16/16 07/16/16 07/16/16 07:00 15:00 23:00 07:00 15:00 23:00 Intake Total 121 ml 814 ml 950 ml 730 ml 421 ml Output Total 150 ml 150 ml 200 ml 600 ml Balance -29 ml 664 ml 750 ml 130 ml 421 ml Intake Oral 121 ml 480 ml 120 ml 50 ml IV Total 334 ml 830 ml 680 ml 421 ml Output Urine Total 150 ml 150 ml 200 ml 600 ml # Voids 0 # Bowel Movements 0 0 0 0 Result Diagram: 07/15/16 0615 07/13/16 0940 Objective Remarks GENERAL: Frail elderly female, no distress SKIN: Warm and dry. HEAD: Normocephalic. EYES: No scleral icterus. No injection or drainage. NECK: Supple, trachea midline. No JVD or lymphadenopathy. CARDIOVASCULAR: Regular rate and rhythm without murmurs, gallops, or rubs. RESPIRATORY: Breath sounds equal bilaterally. No accessory muscle use. GASTROINTESTINAL: Abdomen soft, non-tender, nondistended. MUSCULOSKELETAL: No cyanosis, or edema. BACK: Nontender without obvious deformity. No CVA tenderness. A/P Assessment and Plan COPD S/P left hip surgery H/O PE resp acidosis PLAN: Aerosol nebs Supplement 02 to keep sat 88-92 % SQ Lovenox CPAP if sob or lethargic DC palns underway. Shawn Landers MD Jul 16, 2016 17:20
[2016-07-16] MEDS: PRAVASTATIN SOD 40 MG TAB PO SCH (21:07)
--- NOTE | 2016-07-17 06:54 | PD.ORT.PN ---
Subjective Subjective Remarks POD 3 s/p IMN left hip doing well. reports slight pain. out of bed with therapy Objective Vitals Vital Signs Date Time Temp Pulse Resp B/P Pulse Ox O2 Delivery O2 Flow Rate FiO2 07/16/16 23:15 96.9 92 20 125/55 95 07/16/16 21:07 Nasal Cannula 2.50 07/16/16 20:40 97.9 94 19 117/51 92 07/16/16 16:00 96.6 98 19 129/59 94 07/16/16 11:16 96.9 86 19 140/53 97 07/16/16 10:20 97 Nasal Cannula 2.00 07/16/16 07:45 Nasal Cannula 2.00 07/16/16 07:15 97.2 89 19 142/66 96 I/O 07/16/16 07/16/16 07/16/16 07/17/16 07/17/16 07/17/16 07:00 15:00 23:00 07:00 15:00 23:00 Intake Total 730 ml 1081 ml 1020 ml 120 ml Output Total 600 ml 450 ml Balance 130 ml 631 ml 1020 ml 120 ml Intake Oral 50 ml 660 ml 240 ml 120 ml IV Total 680 ml 421 ml 780 ml Output Urine Total 600 ml 450 ml # Voids 2 2 2 # Bowel Movements 0 1 0 0 Result Diagram: 07/15/16 0615 07/13/16 0940 Objective Remarks LLE: dressings clean and dry. intact. NVI Assessment & Plan Assessment and Plan POD # 3 s/p L hip intertroch fx WBAT-PT lovenox for dvt prop discharge planning, stable from orthopedic point to be discharged to rehab f/u wtih Ad or PEGGY in 2 weeks Ghassan Garza Jul 17, 2016 06:54
[2016-07-17] MEDS ORDERED: WALKER/ADULT/FO1 MIS (06:55)
[2016-07-17 07:00] VITALS: BP 121/57; PULSE 93; RESP 17; TEMP 95.9; O2SAT 94
[2016-07-17] MEDS: PANTOPRAZOLE SOD 20 MG DELAYED RELEASE TAB PO SCH (08:54)
[2016-07-17] MEDS: NIFEdipine 30 MG SUSTAINED RELEASE TAB PO SCH (08:54)
[2016-07-17] MEDS: POLYETHYLENE GLYCOL 17 GM PKG PO SCH (08:55)
[2016-07-17] MEDS: CHOLECALCIFEROL (VIT D3) 5000 UNIT CAP PO SCH (08:55)
[2016-07-17] MEDS: ENOXAPARIN SODIUM 30 MG/0.3 ML SYRINGE SQ SCH (08:55)
[2016-07-17] MEDS: DONEPEZIL HCL 5 MG TAB PO SCH (08:55)
[2016-07-17] MEDS: LISINOPRIL 10 MG TAB PO SCH (08:55)
[2016-07-17] MEDS: CALCIUM/VITAMIN D 250 MG/125 U TAB PO SCH (08:55)
[2016-07-17] MEDS: ACETAMINOPHEN/HYDROcodone 325 MG/7.5 MG TAB PO PRN (10:25)
[2016-07-17 11:08] VITALS: BP 114/58; PULSE 95; RESP 20; TEMP 96.2; O2SAT 98
[2016-07-17 12:19] VITALS: O2SAT 98
[2016-07-17] MEDS ORDERED: CHOL5000 PO (12:36)
[2016-07-17] MEDS ORDERED: OYST250T4 PO (12:36)
[2016-07-17] MEDS ORDERED: POLY17S PO (12:36)
[2016-07-17] MEDS ORDERED: XARE10TA PO (12:45)
--- NOTE | 2016-07-17 12:48 | HHI.DS ---
Discharge Summary Admission Date Jul 13, 2016 at 10:55 am Discharge Date: Jul 17, 2016 Admitting Diagnosis trip and fall/left hip fracture (1) Closed left hip fracture ICD Code: S72.002A Procedures 07/14/2016 Left hip reduction and intramedullary nail fixation Brief History - From Admission 81 yr old female w PMHX of PE, COPD oxygen dependent, hyperlipidemia, dementia, presented to the ED for left hip pain. She fell around 5this morning after tripping on her oxygen cord. She called her best friend who came to see her as soon as he could around 7am. Pt is a poor historian but family friend at bedside gives me the history. Pt denies any LOC or hitting her head. Currently her pain is a 10/10 and radiates to her back. Stabbing in nature and located in her left hip. She tells me that she has been using oxygen at home for a very long time. She rarely uses her inhalers but cannot tell me which ones she is on. When asked about her hx of PE and if she had any other blood disorders she admits having a PE but denies any blood d/o and tells me that she hasn't been on blood thinners in a while but then tells me that she has been taking her meds and cannot remember if she indeed is on blood thinners. Apparently her was on hospice and they took all of their meds including hers. However she had some in her dispenser and she has been taking them but cannot recall which meds she is supposed to be on. Pt's friend couldn't find the bottles himself therefore cannot tell me what she takes. She does go to [facility] on . Her a few days ago. Pt wishes to be a DNR. She tells me that she SOB is stable, hasn't had a flare in a while. Hasn't required using an inhaler recently. She denies any cardiac hx and friend doesn' t know of any. CBC/BMP: 07/15/16 0615 07/13/16 0940 Significant Findings Laboratory Tests Test 3/18/17 06:15 Hemoglobin 9.4 GM/DL (11.6-15.3) Hematocrit 28.5 % (35.0-46.0) Imaging Last Impressions Hip X-Ray 07/14/16 0000 Signed Impressions: Service Date/Time: Thursday, July 14, 2016 08:03 - CONCLUSION: Successful ORIF. Cem Avalos MD Lumbar Spine X-Ray 07/13/16 0905 Signed Impressions: Service Date/Time: June 09:25 - CONCLUSION: 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 Anthony Salvador MD Hip and Pelvis X-Ray 07/13/16 0856 Signed Impressions: Service Date/Time: June 09:28 - CONCLUSION: Mildly angulated intertrochanteric fracture left hip. Anthony Salvador MD Chest X-Ray 07/13/16 0856 Signed Impressions: Service Date/Time: June 09:21 - CONCLUSION: COPD No evidence of significant airspace disease or acute congestion. Intact osseous structures without evidence of displaced rib fracture. Anthony Salvador MD PE at Discharge GENERAL: This is a well-nourished, well-developed patient, in no apparent distress. CARDIOVASCULAR: Regular rate and rhythm without murmurs RESPIRATORY: Clear to auscultation. Breath sounds equal bilaterally. No wheezes GASTROINTESTINAL: Abdomen soft, non-tender, nondistended. No guarding. MUSCULOSKELETAL: Extremities without edema. NEUROLOGICAL: Awake and alert, but pleasantly confused. Cranial nerves II through XII intact. able to wiggle her toes, sensation intact Pt update on day of discharge Ms. Yang is doing well. No acute concerns. Pain is well controlled. No fever, chills. Hospital Course Ms. Yang is a pleasant 81-year-old female with a history of COPD, hyperlipidemia, PE who presented to the emergency department after a mechanical fall. X-ray shows left hip intertrochanteric fracture. Patient underwent left hip reduction and intramedullary nail fixation. She would closely by orthopedic surgery. Orthopedic surgery today for discharge and patient was subsequently discharged on 07/17/2016. Patient was also followed by pulmonary service with regards to COPD. Patient was sent to SNF with pain medication as well as Xarelto 10 mg by mouth daily. Discussed with case management prior to discharge. Pt Condition on Discharge: Good Discharge Disposition: Discharge to SNF Discharge Time: > 30 minutes Discharge Instructions DIET: Follow Instructions for: Heart Healthy Diet Activities you can perform: Regular-No Restrictions Follow up Referrals: Orthopedics - 2 Weeks @ [facility] with Benja Duong MD New Medications: Hydrocodone-Acetaminophen ([place]) 7.5-325 mg Tab 1 TAB PO Q4H PRN PAIN #50 Ref 0 TAB Rivaroxaban (Xarelto) 10 Mg Tab 10 MG PO DAILY Blood Clot Prevention #14 Ref 0 TAB Walker/Adult/Folding (Walker/Adult/Folding) 1 Mis Mis 1 EA .ROUTE DIRECTED #1 Ref 0 EA Calcium Carbonate-Cholecalciferol (Oyster Shell Calcium/Vitamin D) 250-125 Mg- Unit Tab 250 MG PO TID Calcium Supplement #90 TAB Cholecalciferol (Vitamin D3) 5,000 Unit Cap 5000 UNITS PO DAILY vitamin #30 CAP Polyethylene Glycol 3350 Powder (Polyethylene Glycol 3350 Powder) 17 Gm Pow 17 GM PO DAILY Constipation #30 BOTTLE Continued Medications: Donepezil (Aricept) 10 Mg Tab 10 MG PO DAILY Dementia #30 Ref 0 TAB Lisinopril (Lisinopril) 10 Mg Tab 10 MG PO DAILY #30 Ref 0 TAB Lovastatin (Lovastatin) 40 Mg Tab 40 MG PO HS Cholesterol Management #30 Ref 0 TAB Nifedipine ER 24 HR (Nifedical XL) 60 Mg Tab 30 MG PO DAILY #30 Ref 0 TAB Omeprazole (Omeprazole) 20 Mg Tab 20 MG PO DAILY #30 Ref 0 TAB Jessica Olmedo DO Jul 17, 2016 12:47
== END 2016-07-17 15:23 | DRG 481 ==
LOC: NEPC 08:52 → NEDA 10:55 → N06B 16:03
PROVIDERS: ADMIT Hospitalist; ATTEND Hospitalist
PROC: 0QS736Z Reposition Left Upper Femur with Intramedullary Internal Fixation Device, Percutaneous Approach (ICD-10-PCS; principal; 2016-07-14 07:20)
DX: S72.142A Displaced intertrochanteric fracture of left femur, initial encounter for closed fracture (principal); E87.2 Acidosis; Z99.81 Dependence on supplemental oxygen; F03.90 Unspecified dementia, unspecified severity, without behavioral disturbance, psychotic disturbance, mood disturbance, and anxiety; M41.9 Scoliosis, unspecified; R13.10 Dysphagia, unspecified; J44.9 Chronic obstructive pulmonary disease, unspecified; W01.0XXA Fall on same level from slipping, tripping and stumbling without subsequent striking against object, initial encounter; Y93.9 Activity, unspecified; Y92.099 Unspecified place in other non-institutional residence as the place of occurrence of the external cause; I10 Essential (primary) hypertension; Z86.711 Personal history of pulmonary embolism; F17.210 Nicotine dependence, cigarettes, uncomplicated; Z66 Do not resuscitate; E78.5 Hyperlipidemia, unspecified; Z82.3 Family history of stroke; Z82.49 Family history of ischemic heart disease and other diseases of the circulatory system; D72.829 Elevated white blood cell count, unspecified; F43.9 Reaction to severe stress, unspecified; E78.00 Pure hypercholesterolemia, unspecified; M81.0 Age-related osteoporosis without current pathological fracture; Z86.19 Personal history of other infectious and parasitic diseases
CPT/HCPCS: 36600; 51702; 71010; 72100; 73502; 76000; 80053; 81001; 82306; 82550; 82805; 85014; 85018; 85025; 85610; 85730; 93005; 96374; 96375; C1713; J0131; J0690; J1170; J1580; J1650; J2270; J2370; J2405; J3010; J3370; J7030; J7040; J7050